=== PATIENT | female | born 1955 | race Two or more races ===

== ENCOUNTER 2017-12-03 07:10 | Outpatient (CLI) | payer OTHER | END 2017-12-03 07:17 | disposition home or self-care (01) | LOC: SONOGRAMA 07:10 | DX: E04.2 Nontoxic multinodular goiter (principal) ==

== ENCOUNTER 2018-09-24 07:46 | Outpatient (CLI) | payer OTHER | END 2018-09-24 07:59 | disposition home or self-care (01) | LOC: SONOGRAMA 07:46 | DX: E04.1 Nontoxic single thyroid nodule (principal) ==

== ENCOUNTER 2022-12-26 12:24 | Outpatient (CLI) | payer OTHER | END 2022-12-26 12:26 | disposition home or self-care (01) | LOC: SONOGRAMA 12:24 | PROVIDERS: ATTEND Pathology Anatomic Pathology | DX: D34 Benign neoplasm of thyroid gland (principal); E04.9 Nontoxic goiter, unspecified ==

== ENCOUNTER 2024-06-10 10:43 | Outpatient (CLI) | payer OTHER | END 2024-06-10 10:46 | disposition home or self-care (01) | LOC: SONOGRAMA 10:43 | PROVIDERS: ATTEND Pathology Anatomic Pathology & Clinical Pathology | DX: D34 Benign neoplasm of thyroid gland (principal); E07.89 Other specified disorders of thyroid; E04.2 Nontoxic multinodular goiter ==